=== PATIENT | female | born 2000 | race Caucasian/White ===

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

== ENCOUNTER 2021-07-03 16:03 | Emergency (ER) | payer MEDICAID ==
[~2021-07-03] VITALS: Ht 167.6 cm; Wt 64.4 kg
--- NOTE | 2021-07-03 16:15 | NUR ---
Pt wheelchair assisted to bed 06.
[2021-07-03 16:19] VITALS: BP 139/76
--- NOTE | 2021-07-03 16:30 | NUR ---
ERASMO Orourke is evaluating patient at bedside
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
--- NOTE | 2021-07-03 16:36 | NUR ---
RAD at bedside
[2021-07-03] MEDS ORDERED: KETOROLAC 30 MG/ML VIAL IM ONE (16:40)
[2021-07-03] MEDS ORDERED: NAPR-54 PO (17:04)
== END 2021-07-03 17:05 | disposition home or self-care (01) ==
LOC: MED 16:03
DX: M25.562 Pain in left knee (principal); F03.90 Unspecified dementia, unspecified severity, without behavioral disturbance, psychotic disturbance, mood disturbance, and anxiety
CPT/HCPCS: 73562; 96372; 99283; J1885; Q0092

== ENCOUNTER 2021-09-05 17:51 | Emergency (ER) | payer MEDICAID ==
[~2021-09-05] VITALS: Ht 167.6 cm; Wt 54.4 kg
[~2021-09-05 17:51] MED LIST: NAPR-54 PO
[2021-09-05] MEDS ORDERED: LORazepam 0.5 MG TAB PO ONE (22:30)
[2021-09-05] MEDS ORDERED: ONDANSETRON 4 MG ODT PO ONE (22:30)
[2021-09-05 22:59] LABS: BASOPHILS % (AUTO) 0.2 % (0.0-2.0); HEMATOCRIT 38.6 % (36-48); LYMPHOCYTES # (AUTO) 2.2 K/uL (2.5-16.5); LYMPHOCYTES % (AUTO) 18.1 % (20.5-51.1); MEAN CORPUSCULAR HEMOGLOBIN 29 pg (27-31); MEAN CORPUSCULAR HGB CONC 34 g/dL (33-37); MEAN CORPUSCULAR VOLUME 85.2 fL (80-94); MONOCYTES # (AUTO) 0.7 K/uL (0.8-1.0); MONOCYTES % (AUTO) 6.2 % (1.7-9.3); NEUTROPHILS % (AUTO) 75.5 % (42.2-75.2); PLATELET COUNT (AUTO) 418 K/uL (140-450); RED BLOOD CELL COUNT(AUTO) 4.54 MIL/uL (4.20-5.40); RED CELL DISTRIBUTION WIDTH 14.2 % (11.6-13.7)
[2021-09-05 23:48] LABS: PROTHROMBIN TIME 10.2 secs (10.8-13.4)
[2021-09-05 23:51] LABS: ALBUMIN 4.1 g/dL (3.4-5.0); ANION GAP 14.7 (8-16); CARBON DIOXIDE 25.9 mmol/L (21-32); CREATININE 0.7 mg/dL (0.6-1.3); POTASSIUM 3.6 mmol/L (3.5-5.1); TOTAL BILIRUBIN 0.2 mg/dL (0.0-1.0)
[2021-09-06] MEDS ORDERED: HYDR25CA1 PO (00:07)
[2021-09-06] MEDS ORDERED: diazePAM 5 MG TAB ONE ×2 (00:52→01:11)
[2021-09-06] MEDS ORDERED: ONDANSETRON 4 MG ODT ONE (00:53)
== END 2021-09-06 01:13 | disposition home or self-care (01) ==
LOC: MED 17:51
DX: F41.9 Anxiety disorder, unspecified (principal); R07.89 Other chest pain; Z79.899 Other long term (current) drug therapy
CPT/HCPCS: 36415; 71046; 80053; 81025; 84484; 85025; 85610; 85730; 93005; 99285; Q0162

== ENCOUNTER 2022-01-16 21:52 | Emergency (ER) | payer OTHER, MEDICAID ==
[~2022-01-16] VITALS: Ht 167.6 cm; Wt 70.3 kg
[~2022-01-16 21:52] MED LIST changes: +HYDR25CA1 PO
--- NOTE | 2022-01-16 22:04 | NUR ---
PT ANGEL BELTRAN. TAKEN TO RUDY SOLIS
[2022-01-16 22:05] VITALS: BP 145/94
--- NOTE | 2022-01-16 23:04 | NUR ---
patient to bed 3
[2022-01-16] MEDS ORDERED: LORazepam 1 MG TAB PO ONE (23:10)
--- NOTE | 2022-01-16 23:30 | NUR ---
PATIENT RESTING IN BED. BED LOW AND LOCKED. APIGE SIDE RAILS UP FOR SAFETY. LIGHTS TURNED OFF AND COVERED IN SHEETS FOR COMFORT. ALL NEEDS MET AT THIS TIME.
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
--- NOTE | 2022-01-17 | NUR ---
21/F AAOX4, AMBULATORY. BIBA C/O ANXIETY X1.5H AGO. PATIENT STATED THAT SHE OCCATIONALLY GETS LIKE THIS, THIS IS NOT HER FIRST TIME. PATIENT SAID THAT SHE WAS OUT DRINKING LAST NIGHT WHICH MIGHT OF TRIGGERED THE ANXIETY. SHE HASNT BEEN ABLE TO EAT OR DRINK SINCE LAST NIGHT. PATIENT DENIES SOB/CP/N/V/C/D AT THIS TIME. DENIES TAKING MEDS PRIOR TO ARRIVAL. RR EVEN AND UNLABORED AT THIS TIME, NO SIGNS OF RR DISTRESS. PMHX ANXIETY MEDS DENIES NKA
[2022-01-17] MEDS ORDERED: HYDR-637 PO (00:04)
--- NOTE | 2022-01-17 00:05 | NUR ---
PATIENT AMBULATED TO THE AND BACK TO BED 3
[2022-01-17 00:30] VITALS: BP 115/67
--- NOTE | 2022-01-17 00:30 | NUR ---
Patient discharged with v/s stable. Written and verbal after care instructions given on anxiety and explained. Patient alert, oriented and verbalized understanding of instructions. Ambulatory with steady gait. All questions addressed prior to discharge. ID band removed. Patient advised to follow up with PMD. Rx of Hydroxyzine given.
--- NOTE | 2022-01-17 01:52 | NUR ---
The patient's care was reviewed and supervised by Pavithra Caldwell RN. Chart checked.
== END 2022-01-17 00:30 | disposition home or self-care (01) ==
LOC: MED 21:52
DX: F41.0 Panic disorder [episodic paroxysmal anxiety] (principal); R00.0 Tachycardia, unspecified; Z79.899 Other long term (current) drug therapy; Z79.1 Long term (current) use of non-steroidal anti-inflammatories (NSAID)
CPT/HCPCS: 81025; 93005; 99283

== ENCOUNTER 2022-04-28 18:59 | Emergency (ER) | payer OTHER, MEDICAID ==
[~2022-04-28] VITALS: Ht 167.6 cm; Wt 68.0 kg
[~2022-04-28 18:59] MED LIST changes: +HYDR-637 PO
[2022-04-28 19:52] VITALS: BP 108/66
[2022-04-28] MEDS ORDERED: IBUPROFEN 600 MG TAB PO ONE (20:20)
[2022-04-28] MEDS ORDERED: IBUP-2213 PO (21:16)
[2022-04-28 21:37] VITALS: BP 112/66
== END 2022-04-28 21:37 | disposition home or self-care (01) ==
LOC: MED 18:59
DX: S86.912A Strain of unspecified muscle(s) and tendon(s) at lower leg level, left leg, initial encounter (principal); R51.9 Headache, unspecified; Z79.1 Long term (current) use of non-steroidal anti-inflammatories (NSAID); Z79.899 Other long term (current) drug therapy; V89.2XXA Person injured in unspecified motor-vehicle accident, traffic, initial encounter; Y93.89 Activity, other specified; Y92.410 Unspecified street and highway as the place of occurrence of the external cause; Y99.8 Other external cause status
CPT/HCPCS: 29505; 73562; 99283

== ENCOUNTER 2022-07-05 21:39 | Emergency (ER) | payer OTHER, MEDICAID ==
[~2022-07-05] VITALS: Ht 167.6 cm; Wt 70.3 kg
[~2022-07-05 21:39] MED LIST changes: +IBUP-2213 PO
[2022-07-05 21:54] VITALS: BP 110/66
--- NOTE | 2022-07-05 22:01 | NUR ---
PATIENT AMBULATED TO LOBBY IN STABLE CONDITION
--- NOTE | 2022-07-05 22:01 | NUR ---
PATIENT PROVIDED WITH URINE COLLECTION CUP FOR URINE SAMPLE
[2022-07-05] MEDS ORDERED: ONDANSETRON 4 MG/2 ML VIAL IVP ONE (23:25)
[2022-07-05] MEDS ORDERED: NACL 0.9% 1,000 ML IV SCH (23:25)
[2022-07-05 23:39] LABS: APPEARANCE,URINE CLEAR (CLEAR); BILIRUBIN,URINE NEGATIVE (NEGATIVE); BLOOD, URINE 2+ (NEGATIVE); COLOR,URINE YELLOW (YELLOW); LEUKOCYTE ESTERASE ,URINE NEGATIVE (NEGATIVE); NITRITE, URINE NEGATIVE (NEGATIVE); UGLUCOSE NEGATIVE (NEGATIVE)
--- NOTE | 2022-07-05 23:39 | NUR ---
LAB AT BEDSIDE
--- NOTE | 2022-07-05 23:39 | NUR ---
PATIENT AMBULATED TO BED 11.
[2022-07-05 23:49] LABS: BASOPHILS % (AUTO) 0.4 % (0.0-2.0); EOSINOPHILS % (AUTO) 0.3 % (0.0-4.0); HEMATOCRIT 38.1 % (36-48); LYMPHOCYTES # (AUTO) 2.2 K/uL (2.5-16.5); LYMPHOCYTES % (AUTO) 21.3 % (20.5-51.1); MEAN CORPUSCULAR HEMOGLOBIN 30 pg (27-31); MEAN CORPUSCULAR HGB CONC 34 g/dL (33-37); MEAN CORPUSCULAR VOLUME 87.7 fL (80-94); MONOCYTES % (AUTO) 9.6 % (1.7-9.3); NEUTROPHILS % (AUTO) 68.4 % (42.2-75.2); PLATELET COUNT (AUTO) 398 K/uL (140-450); RED BLOOD CELL COUNT(AUTO) 4.35 MIL/uL (4.20-5.40); RED CELL DISTRIBUTION WIDTH 14.2 % (11.6-13.7); WHITE BLOOD COUNT (AUTO) 10.3 K/uL (4.8-10.8)
[2022-07-05 23:49] LABS: RBC,URINE 0-5 /HPF (0-5); WBC,URINE 0-5 /HPF (0-5)
[2022-07-06 00:19] LABS: ALBUMIN 3.9 g/dL (3.4-5.0); ANION GAP 13.6 (8-16); CARBON DIOXIDE 25.8 mmol/L (21-32); CREATININE 0.6 mg/dL (0.6-1.3); POTASSIUM 3.4 mmol/L (3.5-5.1); TOTAL BILIRUBIN 0.3 mg/dL (0.0-1.0)
--- NOTE | 2022-07-06 01:49 | NUR ---
PATEINT STABLE NOT COMPLAINING OF PAIN VITALS SIGNS IN NORMAL LIMITS
[2022-07-06] MEDS ORDERED: KETOROLAC 30 MG/ML VIAL IVP ONE (01:50)
[2022-07-06] MEDS ORDERED: cephALEXin 500 MG CAP PO ONE (01:50)
[2022-07-06] MEDS ORDERED: CEPH-588 PO (01:51)
[2022-07-06 02:39] VITALS: BP 120/64
--- NOTE | 2022-07-06 02:42 | NUR ---
PATIENT ALERT ORIENTED STABLE NOT COMPLAINING OF PAIN VITALS SIGNS IN NORMAL LIMITS DC HOME STABLE ALL DC INSTRUCTION GAVE AND EXPLAINED WE RECOMMEND TO FOLLOW UP WITH PCP
--- NOTE | 2022-07-08 08:00 | NUR ---
LATE ENTRY-IVF/IVP MEDS
== END 2022-07-06 02:11 | disposition home or self-care (01) ==
LOC: MED 21:39
DX: N39.0 Urinary tract infection, site not specified (principal); R10.84 Generalized abdominal pain; R11.0 Nausea; Z79.899 Other long term (current) drug therapy
CPT/HCPCS: 36415; 74177; 80053; 81001; 81025; 83690; 84703; 85025; 87086; 96361; 96374; 96375; 99285; J1885; J2405; J7030; Q9967; 99284

== ENCOUNTER 2023-10-14 19:50 | Emergency (ER) | payer MEDICAID, OTHER ==
[~2023-10-14] VITALS: Ht 167.6 cm; Wt 72.6 kg
[~2023-10-14 19:50] MED LIST changes: +CEPH-588 PO
[2023-10-14 20:05] VITALS: BP 117/81; PULSE 98; RESP 16; TEMP 97.7; O2SAT 99
[2023-10-15] MEDS: NACL 0.9% 1,000 ML IV ONE (00:03)
[2023-10-15] MEDS: ONDANSETRON 4 MG/2 ML VIAL IVP ONE (00:03)
[2023-10-15 00:05] LABS: BASOPHILS % (AUTO) 0.3 % (0.0-2.0); EOSINOPHILS % (AUTO) 0.1 % (0.0-4.0); HEMATOCRIT 39.7 % (36-48); HEMOGLOBIN 13.4 g/dL (12.0-16.0); LYMPHOCYTES # (AUTO) 2.4 K/uL (2.5-16.5); LYMPHOCYTES % (AUTO) 16.7 % (20.5-51.1); MEAN CORPUSCULAR HEMOGLOBIN 30 pg (27-31); MEAN CORPUSCULAR HGB CONC 34 g/dL (33-37); MEAN CORPUSCULAR VOLUME 87.4 fL (80-94); MONOCYTES # (AUTO) 1.3 K/uL (0.8-1.0); NEUTROPHILS # (AUTO) 10.6 K/uL (1.8-7.7); NEUTROPHILS % (AUTO) 73.9 % (42.2-75.2); PLATELET COUNT (AUTO) 437 K/uL (140-450); RED BLOOD CELL COUNT(AUTO) 4.54 MIL/uL (4.20-5.40); WHITE BLOOD COUNT (AUTO) 14.4 K/uL (4.8-10.8)
[2023-10-15 00:32] LABS: ANION GAP 15.5 (8-16); CARBON DIOXIDE 28.9 mmol/L (21-32); CREATININE 0.7 mg/dL (0.6-1.3); POTASSIUM 3.4 mmol/L (3.5-5.1)
[2023-10-15 00:36] LABS: ALBUMIN 4.4 g/dL (3.4-5.0); BILIRUBIN,DIRECT 0.1 mg/dL (0.0-0.3); TOTAL BILIRUBIN 0.3 mg/dL (0.0-1.0); TOTAL PROTEIN, SERUM 9.6 g/dL (6.4-8.2)
[2023-10-15] MEDS: KETOROLAC 30 MG/ML VIAL IVP ONE (00:50)
[2023-10-15 01:12] VITALS: BP 132/63; PULSE 79; RESP 17
[2023-10-15 02:03] LABS: APPEARANCE,URINE HAZY (CLEAR); BILIRUBIN,URINE NEGATIVE (NEGATIVE); BLOOD, URINE 3+ (NEGATIVE); COLOR,URINE YELLOW (YELLOW); LEUKOCYTE ESTERASE ,URINE TRACE (NEGATIVE); NITRITE, URINE NEGATIVE (NEGATIVE); PH,URINE 7.5 (5.0-9.0); PROTEIN,URINE 1+ (NEGATIVE); UGLUCOSE NEGATIVE (NEGATIVE); UROBILINOGEN,URINE 0.2 EU/dL (0.2 - 1)
[2023-10-15 02:18] LABS: BACTERIA,URINE 2+ /HPF (None Seen); WBC,URINE 0-5 /HPF (0-5)
[2023-10-15 02:19] LABS: MUCUS,URINE 1+ /LPF (None Seen); SQUAMOUS EPITHELIAL CELL,UR 20-50 /LPF (0-3 (FEW))
[2023-10-15 03:00] VITALS: O2SAT 100
[2023-10-15] MEDS ORDERED: cefTRIAXone 1,000 MG VIAL ONE (03:42)
[2023-10-15 05:22] VITALS: O2SAT 100
[2023-10-15] MEDS ORDERED: ONDA-188 SL (06:02)
[2023-10-15] MEDS ORDERED: CIPR500T4 PO (06:02)
== END 2023-10-15 06:09 | disposition home or self-care (01) ==
LOC: MED 19:50
DX: N39.0 Urinary tract infection, site not specified (principal); Z79.899 Other long term (current) drug therapy
CPT/HCPCS: 36415; 74176; 80048; 80076; 81001; 81025; 83690; 85025; 87040; 87086; 96361; 96365; 96375; 99285; J0696; J1885; J2405; J7030